=== PATIENT | female | born 1975 | race Caucasian/White ===

== ENCOUNTER 2020-03-08 08:26 | Outpatient (CLI) | payer BC, SELFPAY ==
--- NOTE | 2020-03-08 08:32 | USCV_ITS ---
Sakina Sharp Age: 44 Gender: F : 1975 Exam Date: 03/08/2020 08:53 Ordering Phys: Willow Villagomez [employer] Technologist: Yash Smith Exam Location: [facility] [place] Indication: PALPITATIONS BP: 130 / 80 HR: 82 Rhythm: Sinus Technical Quality: Adequate MEASUREMENTS (Male / Female) Normal Values 2D ECHO LV Diastolic Diameter PLAX 4.4 cm 4.2 - 5.9 / 3.9 - 5.3 cm LV Systolic Diameter PLAX 2.8 cm IVS Diastolic Thickness 1.2 cm 0.6 - 1.0 / 0.6 - 0.9 cm IVS Systolic Thickness 1.2 cm LVPW Diastolic Thickness 1.1 cm 0.6 - 1.0 / 0.6 - 0.9 cm LVPW Systolic Thickness 1.4 cm LVOT Diameter 2.0 cm LV Ejection Fraction 2D Teich 67.1 % LV Ejection Fraction MOD 2C 64.3 % LV Ejection Fraction 2C AL 63.8 % LA Diameter 3.6 cm LA Width 4.0 cm LA Height 5.3 cm RA Width 3.6 cm RA Height 4.5 cm Aorta at Sinotubular Diameter 2.0 cm M-MODE LV Diastolic Diameter MM 4.6 cm 4.2 - 5.9 / 3.9 - 5.3 cm LV Systolic Diameter MM 3.2 cm LV Ejection Fraction MM Teich 58.5 % IVS Diastolic Thickness MM 0.9 cm 0.6 - 1.0 / 0.6 - 0.9 cm IVS Systolic Thickness MM 1.5 cm LVPW Diastolic Thickness MM 1.2 cm 0.6 - 1.0 / 0.6 - 0.9 cm LVPW Systolic Thickness MM 1.7 cm RV Diastolic Diameter MM 1.6 cm Aortic Annulus Diameter 3.6 cm LA Ao Ratio MM 1.0 MV E Point Septal Separation 0.7 cm DOPPLER AV Peak Velocity 149.0 cm/s LVOT Peak Velocity 108.0 cm/s AV Area Cont Eq vti 2.6 cm squared AV Area Cont Eq pk 2.4 cm squared MV Area PHT 5.0 cm squared Mitral E to A Ratio 1.1 MV E' Velocity 12.0 cm/s Mitral E to MV E' Ratio 7.3 Mitral E to LV E' Lateral Ratio 6.4 Mitral E to LV E' Septal Ratio 8.8 TR Peak Velocity 247.0 cm/s TR Peak Gradient 24.4 mmHg TV Peak E Velocity 102.0 cm/s Right Atrial Pressure 3.0 mmHg Pulmonary Artery Systolic Pressu 27.4 mmHg PV Peak Velocity 92.0 cm/s FINDINGS Left Ventricle Normal left ventricular cavity size. Normal left ventricular systolic function. No regional wall motion abnormalities. Left ventricular ejection fraction is estimated at 58 %. Grade I/IV diastolic dysfunction (abnormal relaxation filling pattern), normal to mildly elevated filling pressures. Right Ventricle The right ventricle is normal in size and function. Right Atrium The right atrium is normal in size. Left Atrium The left atrium is normal in size. Mitral Valve Mildly thickened mitral valve. No mitral valve stenosis. Trace mitral valve regurgitation. Aortic Valve Moderate aortic valve calcification. No aortic valve stenosis. Trace aortic valve regurgitation. Tricuspid Valve Structurally normal tricuspid valve without significant stenosis or regurgitation. Pulmonary artery systolic pressure is normal. Pulmonic Valve Structurally normal pulmonic valve without significant stenosis. There is no pulmonic regurgitation. Pericardium Normal pericardium without effusion. Aorta Normal ascending aorta dimension. CONCLUSIONS 1-Normal left ventricular cavity size. Normal left ventricular systolic function. No regional wall motion abnormalities. Left ventricular ejection fraction is estimated at 58 %. Grade I/IV diastolic dysfunction (abnormal relaxation filling pattern), normal to mildly elevated filling pressures. 2-Mildly thickened mitral valve. No mitral valve stenosis. Trace mitral valve regurgitation. 3-Moderate aortic valve calcification. No aortic valve stenosis. Trace aortic valve regurgitation. 4-There is no pericardial effusion. 5-Pulmonary artery systolic pressure is within normal limits. 6-Right atrial pressure is around 5 mm of mercury. 7-There are no prior echocardiogram studies to compare. Yoan Genao MD (Electronically Signed) Final Date: 08 March 2020 17:36 S
== END 2020-03-08 08:27 | disposition home or self-care (01) ==
LOC: RAD 08:28
PROVIDERS: Family Provider Internal Medicine; PCP Internal Medicine; Visit Provider Nurse Practitioner Family
DX: R00.2 Palpitations (principal)
CPT/HCPCS: 93306

== ENCOUNTER → 2020-03-29 14:05 | Outpatient (BNVA) | payer BC, SELFPAY | PROVIDERS: Family Provider Internal Medicine; PCP Internal Medicine; Visit Provider Obstetrics & Gynecology | DX: D06.9 Carcinoma in situ of cervix, unspecified (principal); N93.9 Abnormal uterine and vaginal bleeding, unspecified | CPT/HCPCS: 88175 ==

== ENCOUNTER 2020-07-05 12:47 | Outpatient (CLI) | payer BC, SELFPAY ==
[2020-07-05 13:49] LABS: Basophils # 0.1 10^3/uL (0.0-0.1); Basophils % 0.9 %; Eosinophils # 0.3 10^3/uL (0.0-0.8); Hematocrit 44.3 % (37.0-47.0); Lymphocytes # 3.7 10^3/uL (0.8-4.8); Lymphocytes % 26.8 %; Mean Corpuscular HGB Conc 31.6 g/dL (30.0-36.0); Mean Corpuscular Hemoglobin 29.5 pg (28.0-34.0); Mean Corpuscular Volume 93.5 fL (81-99); Mean Platelet Volume 9.9 fL (7.4-10.4); Monocytes # 0.8 10^3/uL (0.2-0.9); Neutrophils # 8.51 10^3/uL (1.8-7.7); Neutrophils % 62.4 %; Nucleated Red Blood Cells % 0 %; Platelet Count 378 10^3/cmm (130-400); Red Blood Count 4.74 10^6/uL (4.1-5.3); Red Cell Distribution Width 13.7 % (12.1-15.1); White Blood Count 13.6 10^3/uL (4.0-10.0)
--- NOTE | 2020-07-05 15:14 | ONC CON_ITS ---
Dr. Ruggiero New Patient Note Patient: Sakina Sharp Unit #: [id number]: 1975 Dicatated By: Jem Ruggiero M.D.Date of Visit: Jul 05, 2020 Onc MED New Patient/Consult Referring Physician: Dr. Johan Ford M.D. History of Present Illness: Ms. Sakina Sharp, is a 45-year-old female with history of mild/isolated leukocytosis since 2015, And recently checked lab on June 10, 2020 showed persistent leukocytosis and with mild thrombocytosis, white blood count was 15.4, hemoglobin 14.5 hematocrit 44.6 platelets 484,000 as per patient , she has history of chronic back pain due to herniated disc and has been treated with steroid injection to her back every 6 to 8 months since 2016 and prior to that she used to take antibiotic and Medrol Dosepak for recurrent upper respiratory infection. Patient has longstanding (20+ years )history of smoking and quit smoking in September 2019 but since then she is using vapors/e-cigarettes. Denies any history of recurrent infections, denies any history of chronic sinus problem, denies any recurrent urine tract infection but patient has gained about 40 pounds in the last couple of years. Patient denies alcohol use. No family history of blood disorder. Denies any night sweats, denies any weight loss rather weight gain, denies any recurrent fevers denies any peripheral lymphadenopathy or abdominal fullness. Past Medical History: Ms. Sharp's medical history consists of anxiety, depression, history of jimmie mountain spotted fever, hypertension, left carpal tunnel syndrome, obstructive sleep apnea, polycystic ovarian syndrome, and tachycardia. Past Surgical History: Ms. Sharp's surgical/procedural history consists of appendectomy, cholecystectomy, and LEAP. Medications: Acidophilus Probiotic 1 Tablet Oral daily, Cholecalciferol 1 Capsule (of 100 mcg ) Oral daily, Lisinopril 1 Tablet (of 20 mg) Oral daily, metFORMIN HCl ER 2 Tablet (of 500 mg) Tablet SR 24 HR Oral b.i.d., Multivitamin Gummies Adult 1 Each Tablet, chewable Oral daily, Toprol XL 1 Tablet (of 100 mg) Tablet SR 24 HR Oral daily, Triamterene-HCTZ 1 Capsule (of 37.5-25 mg) Oral daily, valACYclovir HCl 1 Tablet (of 1 g) Oral PRN Allergies: Effexor XR and Morphine Sulfate. Social History: Ms. Sharp is single. She is a light tobacco smoker. She is a former drinker. Pt states that she uses a vape. Family History: There is no documented family history. Review Of Symptoms: Constitutional - Appetite is good and weight is increasing. No fever, night sweats, or hot flashes. Energy level is fair, ENMT - No sinus congestion/drainage. No mouth sores. No sore throat or difficulty swallowing, Hematologic/Lymphatic - No abnormal bruising or bleeding, Respiratory - No shortness of breath. Positive for cough. No pleuritic pain or hemoptysis, Cardiovascular - No angina pain. Positive for palpitations, Gastrointestinal - No nausea or vomiting. Positive for heartburn and acid reflux. No diarrhea or constipation. No blood in the stool or black stools, Genitourinary (F) - No dysuria or hematuria. No urinary frequency. No urgency or incontinence, Musculoskeletal - Positive for joint pain, Neurologic - No headache or dizziness. No numbness or tingling. No other focal neurologic symptoms, Psychiatric - Positive for anxiety, no depression. No insomnia. Vital Signs: Performed on Jul 05, 2020 14:03: 0, 40.03 (HIGH), 2.09 sq.m, 64 in, 99 %, 91 /min, 16 /min, 137/84 mm(hg), 97.4 F (LOW), and 233.2 lbs (HIGH). Performance Status: 0 - Fully active, able to carry on all predisease activities without restrictions. (ECOG) Physical Examination: ENMT - No mouth sores, no thrush, no Jaundice, No peripheral lymphadenopathy, Respiratory - Lungs are clear to auscultation, Cardiovascular - Regular rate and rhythm of heart, Abdomen - Soft, bowel sounds present, Extremities - No visible edema. Lab/Imaging: Most recent lab results are not available for this patient. Impression: Isolated/mild leukopenia/neutrophilia, etiology unclear could be multifactorial but most likely due to steroids injection to her back for chronic back pain. Other possibility could be obesity or chronic bronchitis due to longstanding history of smoking now due to e-cigarette/vapors or stress or underlying myeloproliferative disorder but less likely. Obesity Diabetes 20+ history of chronic smoking quit in September 2019 now on e-cigarettes. Plan: Discussed with patient regarding her labs white blood count 13.6 hemoglobin 14 g hematocrit 44.3 platelets 378,000 neutrophil count 8.51 Clinically, patient is doing well with no signs symptom suggestive of infection but chronic inflammation/chronic back pain due to herniated disc, now being treated with steroid injections, last time was given in November 2019. No B symptoms suggestive of lymphoproliferative disorder. Etiology of isolated mild leukopenia/neutrophilia is most likely due to steroids but other possibilities could be obesity, stress or chronic bronchial irritation causing subclinical bronchitis. Mild thrombocytosis seen on labs done by PMD on June 10, 2020, now resolved At this point, we will review her peripheral blood smear, patient was advised to quit e-cigarette also for 1 month and repeat CBC in a month and if white blood count continue to improve then will monitor if not then will consider further work-up including flow cytometry/cytogenetic to rule out underlying myelo proliferative disorder. As for generalized weakness and fatigue is concerned, patient may have underlying sleep apnea due to significant weight gain in the recent past, suggest sleep study, if it confirm sleep apnea, may benefit from CPAP machine. Return to clinic in 1 month with CBC Signed By: Jem Ruggiero M.D. <<Signature on File>>
[2020-07-05 22:31] LABS: LAB Peripheral Smear Sent for Review
== END 2020-07-05 12:48 | disposition home or self-care (01) ==
LOC: ONCMED 12:51
PROVIDERS: PCP Internal Medicine; Visit Provider Internal Medicine Hematology & Oncology
DX: D72.819 Decreased white blood cell count, unspecified (principal); R53.83 Other fatigue; R53.1 Weakness; G89.29 Other chronic pain; M54.9 Dorsalgia, unspecified; E66.9 Obesity, unspecified; E11.9 Type 2 diabetes mellitus without complications; F17.290 Nicotine dependence, other tobacco product, uncomplicated; Z79.52 Long term (current) use of systemic steroids
CPT/HCPCS: 36415; 80500; 85025; 99203

== ENCOUNTER 2020-08-13 10:07 | Outpatient (CLI) | payer BC, SELFPAY ==
[2020-08-13 10:42] LABS: Basophils # 0.1 10^3/uL (0.0-0.1); Eosinophils # 0.2 10^3/uL (0.0-0.8); Eosinophils % 1.6 %; Hematocrit 41.3 % (37.0-47.0); Hemoglobin 13.5 g/dL (11.5-15.3); Lymphocytes # 3.4 10^3/uL (0.8-4.8); Lymphocytes % 25.7 %; Mean Corpuscular HGB Conc 32.7 g/dL (30.0-36.0); Mean Corpuscular Hemoglobin 29.2 pg (28.0-34.0); Mean Corpuscular Volume 89.2 fL (81-99); Mean Platelet Volume 9.6 fL (7.4-10.4); Monocytes # 0.7 10^3/uL (0.2-0.9); Monocytes % 5.2 %; Neutrophils # 8.74 10^3/uL (1.8-7.7); Neutrophils % 65.3 %; Nucleated Red Blood Cells % 0 %; Platelet Count 398 10^3/cmm (130-400); Red Blood Count 4.63 10^6/uL (4.1-5.3); Red Cell Distribution Width 13.4 % (12.1-15.1); White Blood Count 13.4 10^3/uL (4.0-10.0)
--- NOTE | 2020-08-13 11:55 | ONC FU_ITS ---
Dr. Ruggiero follow up note Patient: Sakina Sharp Unit #: [id number]: 1975 Dicatated By: Jem Ruggiero M.D.Date of Visit:Aug 13, 2020 Onc Med Follow-up/Prog Note History of Present Illness: Ms. Sakina Sharp, is a 45-year-old female with history of mild/isolated leukocytosis since 2015, as per patient she has history of chronic back pain due to herniated disc and has been treated with steroid injection to her back every 6 to 8 months since 2016 and prior to that she used to take antibiotic and Medrol Dosepak for recurrent upper respiratory infection. Patient has longstanding (20+ years )history of smoking and quit smoking in September 2019 but since then she is using vapors/e-cigarettes. Denies any history of recurrent infections, denies any history of chronic sinus problem, denies any recurrent urine tract infection but patient has gained about 40 pounds in the last couple of years. Patient denies alcohol use. No family history of blood disorder. Denies any night sweats, denies any weight loss rather weight gain, denies any recurrent fevers denies any peripheral lymphadenopathy or abdominal fullness. Came for follow-up, denies any specific complaints, no fever chills, no nausea or vomiting, no diarrhea constipation patient says she did not smoke for 1 month until this morning.No burning micturition, no sinus problem Medications: Acidophilus Probiotic 1 Tablet Oral daily, Cholecalciferol 1 Capsule (of 100 mcg ) Oral daily, Lisinopril 1 Tablet (of 20 mg) Oral daily, metFORMIN HCl ER 2 Tablet (of 500 mg) Tablet SR 24 HR Oral b.i.d., Multivitamin Gummies Adult 1 Each Tablet, chewable Oral daily, Toprol XL 1 Tablet (of 100 mg) Tablet SR 24 HR Oral daily, Triamterene-HCTZ 1 Capsule (of 37.5-25 mg) Oral daily, valACYclovir HCl 1 Tablet (of 1 g) Oral PRN Allergies: Effexor XR and Morphine Sulfate. Review of Systems: Constitutional - Appetite is good and weight is increasing. No fever, night sweats, or hot flashes. Energy level is fair, ENMT - No sinus congestion/drainage. No mouth sores. No sore throat or difficulty swallowing, Hematologic/Lymphatic - No abnormal bruising or bleeding, Respiratory - No shortness of breath. Positive for cough. No pleuritic pain or hemoptysis, Cardiovascular - No angina pain. Positive for palpitations, Gastrointestinal - No nausea or vomiting. Positive for heartburn and acid reflux. No diarrhea or constipation. No blood in the stool or black stools, Genitourinary (F) - No dysuria or hematuria. No urinary frequency. No urgency or incontinence, Musculoskeletal - Positive for joint pain, Neurologic - No headache or dizziness. No numbness or tingling. No other focal neurologic symptoms, Psychiatric - Positive for anxiety, no depression. No insomnia. Vital Signs: Performed on Aug 13, 2020 11:20 Height - 64.00 in Weight - 237.8 lbs (HIGH) BSA - 2.11 sq.m BMI - 40.82 (HIGH) Temperature - 97.1 F (LOW) Pulse - 101 /min (HIGH) Respiration - 20 /min BP - 169/98 mm(hg) (HIGH) O2 Sat - 99 % Pain - 0 Performance Status: 0 - Fully active, able to carry on all predisease activities without restrictions. (ECOG) Physical Examination: ENMT - No mouth sores, no thrush, no jaundice, no peripheral lymphadenopathy, Respiratory - Lungs are clear to auscultation , Cardiovascular - Regular rate and rhythm of heart, Abdomen - Soft, bowel sounds present, Extremities - No visible edema or rash. Lab/Imaging: Test performed on Jul 05, 2020 13:14 WBC 13.6 10 3/uL RBC 4.74 10 6/uL HGB 14.0 g/dL HCT 44.3 % MCV 93.5 fL MCH 29.5 pg MCHC 31.6 g/dL RDW 13.7 % Platelet Count 378 10 3/cmm MPV 9.9 fL Neutrophils 8.51 10 3/uL Lymphocytes 3.7 10 3/uL Monocytes 0.8 10 3/uL Eosinophils 0.3 10 3/uL Basophils 0.1 10 3/uL Neutrophil % 62.4 % Lymphocyte % 26.8 % Monocyte % 6.0 % Eosinophil % 2.0 % Basophils % 0.9 % NRBC % 0 % Impression: Isolated/mild Leukocytosis/neutrophilia, etiology unclear could be multifactorial but most likely due to steroids injection to her back for chronic back pain. Other possibility could be obesity or chronic bronchitis due to longstanding history of smoking now due to e-cigarette/vapors or stress or underlying myeloproliferative disorder but less likely. Obesity Diabetes 20+ history of chronic smoking quit in September 2019 now on e-cigarettes. Plan: Discussed with patient regarding her labs white blood count 13.4 hemoglobin 13.5 hematocrit 41.3 platelets 398,000, differential shows neutrophil [id number] Clinically, patient is doing well with no new signs symptoms suggestive of infection or inflammation. Patient did not smoke for 1 month and her follow-up CBC shows persistent mild leukocytosis/neutrophilia, could be due to smoking but underlying myeloproliferative disorder cannot be ruled out, so at this point we will consider whole blood flow cytometry, myeloproliferative disorder profile and FISH for BCR ABL Patient was encouraged to quit smoking and was offered any assistance she may need. Patient return to clinic in 2 weeks for further discussion. Signed By: Jem Ruggiero M.D. <<Signature on File>>
== END 2020-08-13 10:08 | disposition home or self-care (01) ==
LOC: ONCMED 10:09
PROVIDERS: PCP Internal Medicine; Visit Provider Internal Medicine Hematology & Oncology
DX: D72.828 Other elevated white blood cell count (principal); F17.290 Nicotine dependence, other tobacco product, uncomplicated; G89.29 Other chronic pain; M54.9 Dorsalgia, unspecified; E66.9 Obesity, unspecified; Z68.41 Body mass index [BMI] 40.0-44.9, adult; Z79.52 Long term (current) use of systemic steroids
CPT/HCPCS: 85025; 99214

== ENCOUNTER 2020-08-17 06:17 | Outpatient (CLI) | payer BC, SELFPAY | END 2020-08-17 06:18 | disposition home or self-care (01) | LOC: ONCMED 06:20 | PROVIDERS: PCP Internal Medicine; Visit Provider Internal Medicine Hematology & Oncology | DX: C94.6 Myelodysplastic disease, not elsewhere classified (principal) | CPT/HCPCS: 81219; 88377 ==

== ENCOUNTER 2020-08-27 05:46 | Outpatient (CLI) | payer BC, SELFPAY ==
[2020-08-27 10:53] LABS: Basophils # 0.1 10^3/uL (0.0-0.1); Basophils % 0.7 %; Eosinophils # 0.2 10^3/uL (0.0-0.8); Eosinophils % 1.4 %; Hematocrit 43.7 % (37.0-47.0); Hemoglobin 14.2 g/dL (11.5-15.3); Lymphocytes # 3.6 10^3/uL (0.8-4.8); Mean Corpuscular HGB Conc 32.5 g/dL (30.0-36.0); Mean Corpuscular Hemoglobin 29.5 pg (28.0-34.0); Mean Corpuscular Volume 90.9 fL (81-99); Mean Platelet Volume 9.6 fL (7.4-10.4); Monocytes # 0.8 10^3/uL (0.2-0.9); Monocytes % 5.4 %; Neutrophils # 9.93 10^3/uL (1.8-7.7); Neutrophils % 67.2 %; Nucleated Red Blood Cells % 0 %; Platelet Count 382 10^3/cmm (130-400); Red Blood Count 4.81 10^6/uL (4.1-5.3); Red Cell Distribution Width 13.6 % (12.1-15.1); White Blood Count 14.8 10^3/uL (4.0-10.0)
--- NOTE | 2020-08-27 11:56 | ONC FU_ITS ---
Dr. Ruggiero follow up note Patient: Sakina Sharp Unit #: [id number]: 1975 Dicatated By: Jem Ruggiero M.D.Date of Visit:Aug 27, 2020 Onc Med Follow-up/Prog Note History of Present Illness: Ms. Sakina Sharp, is a 45-year-old female with history of mild/isolated leukocytosis since 2015, as per patient she has history of chronic back pain due to herniated disc and has been treated with steroid injection to her back every 6 to 8 months since 2016 and prior to that she used to take antibiotic and Medrol Dosepak for recurrent upper respiratory infection. Patient has longstanding (20+ years )history of smoking and quit smoking in September 2019 but since then she is using vapors/e-cigarettes. Denies any history of recurrent infections, denies any history of chronic sinus problem, denies any recurrent urine tract infection but patient has gained about 40 pounds in the last couple of years. Patient denies alcohol use. No family history of blood disorder. Denies any night sweats, denies any weight loss rather weight gain, denies any recurrent fevers denies any peripheral lymphadenopathy or abdominal fullness. No mutations were detected in codon 617 or exon 12 of JAK2, or exon 9 of CA LR, or exon 10 of MPL, or exon 14 and 17 of CSF3R. Also negative FISH for BCR ABL 1 fusion. Came for follow-up, denies any specific complaints, no fever chills, no nausea or vomiting, no diarrhea or constipation, no headaches blurred vision or double vision, no abdominal fullness, still smoking e-cigarette/vapors Medications: Acidophilus Probiotic 1 Tablet Oral daily, Cholecalciferol 1 Capsule (of 100 mcg ) Oral daily, Lisinopril 1 Tablet (of 20 mg) Oral daily, metFORMIN HCl ER 2 Tablet (of 500 mg) Tablet SR 24 HR Oral b.i.d., Multivitamin Gummies Adult 1 Each Tablet, chewable Oral daily, Toprol XL 1 Tablet (of 100 mg) Tablet SR 24 HR Oral daily, Triamterene-HCTZ 1 Capsule (of 37.5-25 mg) Oral daily, valACYclovir HCl 1 Tablet (of 1 g) Oral PRN Allergies: Effexor XR and Morphine Sulfate. Review of Systems: Review of Systems is not available for this patient. Vital Signs: Performed on Aug 27, 2020 11:03 Height - 64.00 in Weight - 233.4 lbs (LOW) BSA - 2.09 sq.m BMI - 40.06 (HIGH) Temperature - 97.2 F (LOW) Pulse - 105 /min (HIGH) Respiration - 16 /min O2 Sat - 99 % Pain - 0 Performance Status: 0 - Fully active, able to carry on all predisease activities without restrictions. (ECOG) Physical Examination: ENMT - No mouth sores, no thrush, no jaundice, Respiratory - Lungs are clear to auscultation, Cardiovascular - Regular rate and rhythm of heart, Abdomen - Soft, bowel sounds present, Extremities - No visible edema or rash. Lab/Imaging: Test performed on Aug 27, 2020 00:00 Manual Diff Cancelled via OM: Cancelled in Connected System Test performed on Aug 13, 2020 10:16 Neutrophils 8.74 10 3/uL Eosinophils 0.2 10 3/uL Basophils 0.1 10 3/uL Neutrophil % 65.3 % Eosinophil % 1.6 % Basophils % 1.0 % NRBC % 0 % Impression: Isolated/mild Leukocytosis/neutrophilia, etiology unclear could be multifactorial but most likely due to steroids injection to her back for chronic back pain. Other possibility could be obesity or chronic bronchitis due to longstanding history of smoking now due to e-cigarette/vapors or stress or underlying myeloproliferative disorder but less likely.As no mutations were detected in codon 617 or exon 12 of JAK2, or exon 9 of CA LR, or exon 10 of MPL, or exon 14 or 17 of CSF3R Obesity Diabetes 20+ history of chronic smoking quit in September 2019 now on e-cigarettes. Plan: Discussed with patient regarding her labs white blood count 14.8, hemoglobin 14.2 hematocrit 43.7 platelets 382,000 and molecular testing for myeloproliferative disorder came back negative including FISH for BCR/ABL 1 fusion. Peripheral blood flow cytometry is pending Clinically, patient doing well with no new signs symptoms suggestive of acute or chronic infection, her follow-up CBC shows persistent mild leukocytosis/neutrophilia, molecular profiling testing showed no abnormality suggestive of myeloproliferative disorder, peripheral blood flow cytometry is pending. Clinically it appears patient has reactive leukocytosis/neutrophilia, we will review her peripheral blood flow cytometry report once available and if is negative then no further work-up is needed and we will see her on as-needed basis. Patient was advised to quit e-cigarette or vapors and also suggested sleep studies to rule out sleep apnea Signed By: Jem Ruggiero M.D. <<Signature on File>>
== END 2020-08-27 05:47 | disposition home or self-care (01) ==
LOC: ONCMED 05:48
PROVIDERS: PCP Internal Medicine; Visit Provider Internal Medicine Hematology & Oncology
DX: D72.828 Other elevated white blood cell count (principal); E66.9 Obesity, unspecified; G89.29 Other chronic pain; M54.9 Dorsalgia, unspecified; E11.9 Type 2 diabetes mellitus without complications; F17.290 Nicotine dependence, other tobacco product, uncomplicated; Z68.41 Body mass index [BMI] 40.0-44.9, adult
CPT/HCPCS: 85025; G0463